=== PATIENT | female | born 1935 | race Two or more races ===

== ENCOUNTER 2024-07-08 09:41 | Inpatient (IN) | payer OTHER ==
[~2024-07-08] VITALS: Ht 152.4 cm; Wt 56.8 kg
[2024-07-08 11:56] LABS: Basophils # (auto) 0.1 10 ^3/uL (0-0.2); Basophils % (auto) 0.6 % (0.0-2.0); Eosinophils # (auto) 0.2 10 ^3/uL (0-0.8); Eosinophils % (auto) 2.3 % (0.0-7.0); Hematocrit 35.4 % (36.0-46.0); Lymphocytes # (auto) 2.3 10 ^3/uL (0.4-5.4); Lymphocytes % (auto) 22.1 % (10.0-50.0); Mean Corpuscular Hemoglobin 32.2 pg (28.0-32.0); Mean Corpuscular Volume 94.6 fL (80.0-100.0); Monocytes # (auto) 0.7 10 ^3/uL (0-1.3); Monocytes % (auto) 6.9 % (0.0-12.0); Neutrophils # (auto) 7.1 10 ^3/uL (1.6-8.6); Neutrophils % (auto) 68.1 % (37.0-80.0); Red Blood Cells 3.74 10^6/uL (4.0-5.20); Red Cell Distribution Width 14.6 % (11.8-14.3); White Blood Cell 10.5 10^3/uL (4.4-10.8)
[2024-07-08 12:08] LABS: Alanine Aminotransferase 14 U/L (7-40); Albumin 4.2 g/dL (3.2-4.8); Alkaline Phosphatase 174 U/L (46-116); Anion Gap 10 (5-15); Aspartate Aminotransferase 14 U/L (13-40); BUN/Creatinine Ratio 23.7 (10.0-20.0); Bilirubin, Total 0.6 mg/dL (0.2-1.0); Blood Urea Nitrogen 32 mg/dL (9-23); Calcium 9.2 mg/dL (8.7-10.4); Carbon Dioxide 22 mmol/L (20-30); Chloride 107 mmol/L (98-107); Glucose 118 mg/dL (74-106); Lipase 51 U/L (12-53); Potassium 3.3 mmol/L (3.5-5.1); Sodium 139 mmol/L (136-145)
[2024-07-08 12:09] LABS: Total Protein 7.4 g/dL (5.7-8.2)
[2024-07-08] MEDS: SODIUM CHLORIDE 0.9% 500 ML IVB ONE (12:11)
[2024-07-08 12:40] VITALS: PULSE 71; RESP 18; O2SAT 100
[2024-07-08 14:06] LABS: Urine Bacteria None Seen /hpf (None Seen)
[2024-07-08 14:13] LABS: Urine Blood Negative /uL (Negative); Urine Clarity Clear (Clear); Urine Color Light-Yellow (Yellow); Urine Hyaline Cast FEW /lpf (0 - 2); Urine Protein, UAD TRACE (Negative); Urine Specific Gravity 1.018 (1.001-1.035); Urine Urobilinogen Normal (Negative); Urine WBC 4 /hpf (0 - 5); Urine pH 5.5 (5.0-9.0)
[2024-07-08] MEDS ORDERED: MORPHINE SULFATE 4 MG/ML SYR/VIAL IV ONE (15:00)
[2024-07-08] MEDS ORDERED: ONDANSETRON HCL 4 MG/2 ML VIAL IV ONE (15:00)
[2024-07-08] MEDS ORDERED: HYDROcodone-ACET 5/325MG TAB PO PRN (16:45)
[2024-07-08] MEDS ORDERED: ACETAMINOPHEN 325 MG TAB PO PRN (16:45)
[2024-07-08] MEDS: KETOROLAC TROMETH 30 MG/ML 1ML VIAL IV ONE (18:48)
[2024-07-08] MEDS: LACTATED RINGER'S 1,000 ML IV ONE (18:56)
[2024-07-08] MEDS: TAMSULOSIN HYDROCHLORIDE 0.4 MG CAP PO SCH (19:15)
[2024-07-08 22:15] VITALS: BP 146/46; PULSE 68; RESP 18; TEMP 98; O2SAT 100
[2024-07-08 22:20] LABS: Creatinine, Urine 123.04 mg/dL (30.0-125.0)
[2024-07-08] MEDS ORDERED: INSU1INJ19 SC (22:33)
[2024-07-08] MEDS ORDERED: ALEN70TA74 PO (22:33)
[2024-07-08] MEDS ORDERED: ATOR40TA52 PO (22:33)
[2024-07-08 22:38] VITALS: BP 146/46; PULSE 68; RESP 18; TEMP 98; O2SAT 100
[2024-07-08] MEDS: SODIUM CHLOR 0.9% PF (SALINE LOCK) 10ML VIAL/SYR IV SCH (23:29)
[2024-07-09] VITALS (7 sets, daily range): BP systolic 109–146; BP diastolic 39–61; PULSE 50–83; RESP 16–18; TEMP 97.9–98.5; O2SAT 95–99
[2024-07-09] MEDS: SODIUM CHLORIDE 0.9% 1,000 ML IV SCH (09:14)
[2024-07-09] MEDS: POTASSIUM EFFERVESENT TAB 25 MEQ PO ONE ×2 (09:14→11:25)
[2024-07-09 09:25] LABS: Basophils # (auto) 0 10 ^3/uL (0-0.2); Basophils % (auto) 0.5 % (0.0-2.0); Eosinophils # (auto) 0.3 10 ^3/uL (0-0.8); Hematocrit 35.5 % (36.0-46.0); Hemoglobin 12.2 g/dL (12.2-16.2); Lymphocytes # (auto) 2.1 10 ^3/uL (0.4-5.4); Lymphocytes % (auto) 26.1 % (10.0-50.0); Mean Corpuscular Hemoglobin 32.2 pg (28.0-32.0); Mean Corpuscular Hgb Conc. 34.3 g/dL (32.0-36.0); Mean Corpuscular Volume 93.7 fL (80.0-100.0); Monocytes # (auto) 0.5 10 ^3/uL (0-1.3); Monocytes % (auto) 6.2 % (0.0-12.0); Neutrophils # (auto) 5.2 10 ^3/uL (1.6-8.6); Neutrophils % (auto) 63.2 % (37.0-80.0); Nucleated Red Blood Cells % 0.1 %; Red Blood Cells 3.79 10^6/uL (4.0-5.20); Red Cell Distribution Width 14.9 % (11.8-14.3); White Blood Cell 8.2 10^3/uL (4.4-10.8)
[2024-07-09 09:45] LABS: Alanine Aminotransferase 11 U/L (7-40); Albumin 4.1 g/dL (3.2-4.8); Alkaline Phosphatase 173 U/L (46-116); Anion Gap 10 (5-15); Aspartate Aminotransferase 13 U/L (13-40); BUN/Creatinine Ratio 20.7 (10.0-20.0); Blood Urea Nitrogen 19 mg/dL (9-23); Calcium 9.2 mg/dL (8.7-10.4); Carbon Dioxide 22 mmol/L (20-30); Chloride 109 mmol/L (98-107); Glucose 103 mg/dL (74-106); Potassium 2.9 mmol/L (3.5-5.1); Sodium 141 mmol/L (136-145)
[2024-07-09 09:46] LABS: Bilirubin, Total 0.7 mg/dL (0.2-1.0); Total Protein 6.7 g/dL (5.7-8.2)
[2024-07-10 05:00] VITALS: BP 115/44; PULSE 42; RESP 18; TEMP 98.5; O2SAT 100
[2024-07-10 05:59] LABS: Chloride 112 mmol/L (98-107); Potassium 4.8 mmol/L (3.5-5.1); Sodium 141 mmol/L (136-145)
[2024-07-10 06:00] LABS: Anion Gap 7 (5-15); Carbon Dioxide 22 mmol/L (20-30)
[2024-07-10 06:01] LABS: Calcium 8.2 mg/dL (8.7-10.4)
[2024-07-10 06:05] LABS: Glucose 143 mg/dL (74-106)
[2024-07-10 06:06] LABS: BUN/Creatinine Ratio 16.7 (10.0-20.0); Blood Urea Nitrogen 15 mg/dL (9-23)
[2024-07-10 07:30] VITALS: O2SAT 99
[2024-07-10] MEDS: ONDANSETRON HCL 4 MG/2 ML VIAL IV PRN (08:58)
[2024-07-10 12:57] VITALS: BP 143/60; RESP 19; TEMP 98.2; O2SAT 98
[2024-07-10 14:18] VITALS: BP 150/64; PULSE 49; RESP 19; TEMP 98.3; O2SAT 96
[2024-07-11] MEDS ORDERED: VANC125C3 PO (20:20)
== END 2024-07-10 14:15 | disposition home or self-care (01) | DRG 249 ==
LOC: ER 09:41 → OVERFLOW 16:35 → EAST 21:57
PROVIDERS: ADMIT Internal Medicine Geriatric Medicine; ATTEND Internal Medicine Geriatric Medicine
DX: K52.9 Noninfective gastroenteritis and colitis, unspecified (principal); N17.0 Acute kidney failure with tubular necrosis; N20.0 Calculus of kidney; N39.0 Urinary tract infection, site not specified; E86.0 Dehydration; E87.6 Hypokalemia; I10 Essential (primary) hypertension
CPT/HCPCS: 36415; 74176; 76775; 80048; 80053; 81001; 82306; 82570; 82607; 83036; 83690; 83735; 84300; 84443; 85025; 87045; 87427; 87493; G0378; J1885; J2405